=== PATIENT | female | born 1960 | race Caucasian/White ===

== ENCOUNTER → 2018-12-17 | Outpatient (REF) | payer BC | LOC: M LAB REF 11:01 | PROVIDERS: ATTEND Physician Assistant | DX: R30.0 Dysuria (principal) ==

== ENCOUNTER → 2020-09-12 | Outpatient (REF) | payer BC ==
[2020-09-12 18:29] LABS: BASO % 0.6 % (0.0-1.0); EOS # 0.2 10^3/uL (0.0-0.5); EOS % 2.4 % (0.0-3.0); HEMATOCRIT 40.5 % (36.0-47.0); HEMOGLOBIN 13.2 g/dl (12.0-15.5); LYMPH # 2.3 10^3/uL (1.5-5.0); LYMPH % 32.9 % (24.0-44.0); MEAN CORPUSCULAR HGB CONC 32.6 g/dl (32.0-36.5); MONO # 0.3 10^3/uL (0.0-0.8); MONO % 4.8 % (2.0-8.0); NEUTROPHILS # 4.2 10^3/uL (1.5-8.5); PLATELET COUNT, AUTOMATED 329 10^3/uL (150-450); WHITE BLOOD COUNT 7.1 10^3/uL (4.0-10.0)
[2020-09-12 18:45] LABS: C REACTIVE PROTEIN QUANTITATIV < 0.30 MG/DL (0.00-0.30); RHEUMATOID FACTOR QUANT < 10.0 IU/ML (<15.0); URIC ACID 4.3 MG/DL (2.6-6.0)
[2020-09-12 20:05] LABS: ERYTHROCYTE SEDIMENTATION RATE 10 mm/hr (0-30)
== END ==
LOC: M PLALAB 16:45
PROVIDERS: ATTEND Physician Assistant Surgical
DX: M79.671 Pain in right foot (principal)

== ENCOUNTER → 2020-12-21 | Outpatient (CLI) | payer BC ==
--- NOTE | 2020-12-21 10:54 | REP ---
INDICATION: PAIN IN RIGHT FOOT. COMPARISON: None. TECHNIQUE: Sagittal T2 fat suppressed and proton density. Coronal proton density, STIR and fat suppressed proton density. Axial fat suppressed proton density and T1. FINDINGS: All intrinsic flexor and extensor tendons are intact and of normal appearing low signal throughout. Anterior to the distal Achilles tendon there is mixed signal in conjunction with a 2 x 1.4 x 1.6 cm sized fluid collection. The imaged portion of the Achilles tendon shows a to be intact and of normal appearing low signal throughout. All imaged chondral surfaces are smooth and without abnormal chondral or subchondral signal. The marrow signal is within normal limits. The plantar soft tissues are within normal limits. There is no evidence of a mass or mass effect. The joint spaces are symmetric and well maintained throughout. There is no evidence of a joint effusion. IMPRESSION: Fluid and edema seen deep to the Achilles tendon as described above. <Electronically signed by Alan Singh > 12/21/20 [id number]
== END ==
LOC: M RAD 07:49
PROVIDERS: ATTEND Physician Assistant Surgical
DX: M67.874 Other specified disorders of tendon, left ankle and foot (principal); M79.672 Pain in left foot

== ENCOUNTER → 2021-03-22 | Outpatient (REF) | payer BC | LOC: M LAB REF 18:52 | PROVIDERS: ATTEND Physician Assistant | DX: J02.9 Acute pharyngitis, unspecified (principal); R05.9 Cough, unspecified ==

== ENCOUNTER → 2021-04-19 | Outpatient (CLI) | payer BC ==
--- NOTE | 2021-04-24 14:34 | DEXAMM ---
INDICATION: SCREEN FOR OSTEO. COMPARISON: 04/15/2018. TECHNIQUE: Bone density was measured using dual-energy x-ray absorptiometry (DEXA). FINDINGS: AP SPINE L1-L4 BMD 1.037 g/cm2 Young Adult T-Score -1.3 Age Matched Z-Score -0.2. LT FEMUR, TOTAL BMD 0.796 g/cm2 Young Adult T-Score -1.7 Age Matched Z-Score -0.9. LT NECK BMD 0.704 g/cm2 Young Adult T-Score -2.4 Age Matched Z-Score -1.2. RT FEMUR, TOTAL BMD 0.774 g/cm2 Young Adult T-Score -1.9 Age Matched Z-Score -1.0. RT NECK BMD 0.706 g/cm2 Young Adult T-Score -2.4 Age Matched Z-Score -1.2. IMPRESSION: There is low bone density of the spine. There is low bone density of the left hip. There is low bone density of the right hip. The density of the spine has decreased 1.9% since the initial exam on 04/15/2018. The density of the left hip has increased 1.0% since initial exam on 04/15/2018. The density of the right hip has decreased 0.8% since the initial exam on 04/15/2018. FOLLOW-UP: Recommendation for the next bone density exam: 2 years. <Electronically signed by Obed Lacy > 04/24/21 [id number]
== END ==
LOC: M WHC 13:51
DX: Z13.820 Encounter for screening for osteoporosis (principal); M85.89 Other specified disorders of bone density and structure, multiple sites